=== PATIENT | female | born 1960 | race Caucasian/White ===

== ENCOUNTER 2017-10-04 06:39 | Day surgery (SDC) | payer BC ==
[2017-09-24 10:53] VITALS: BMI 22.4
[2017-10-04] MEDS ORDERED: Propofol 10 mg/ml Inj (20 ML) ONE (07:35)
[2017-10-04] MEDS ORDERED: Lactated Ringer's 1,000 ML IV SCH (08:45)
[2017-10-04 09:31] VITALS: PULSE 66; RESP 18; TEMP 98.3; O2SAT 100
[2017-10-04 10:08] VITALS: BP 97/75
== END 2017-10-04 11:01 | disposition home or self-care (01) ==
LOC: ENDO 06:39
PROVIDERS: ATTEND Internal Medicine Gastroenterology
DX: K57.30 Diverticulosis of large intestine without perforation or abscess without bleeding (principal); K63.5 Polyp of colon; K64.1 Second degree hemorrhoids; I10 Essential (primary) hypertension
CPT/HCPCS: 45380; 45385; 88305; J2001; J2704; J7040; J7120

== ENCOUNTER 2017-10-06 14:32 | Emergency (ER) | payer BC ==
[2017-10-06 14:33] VITALS: BMI 23.6
[2017-10-06 14:58] VITALS: RESP 18
[2017-10-06] MEDS ORDERED: Sodium Chloride 0.9% 500 ML IV STA (15:19)
--- NOTE | 2017-10-06 15:43 | ED PDOC ---
Arrival/HPI - General Chief Complaint: Abdominal Pain Time Seen by Provider: 10/06/17 14:43 Historian: Patient EM Caveat: Acuity of Condition, Unstable Vital Signs - History of Present Illness Narrative History of Present Illness (Text): 10/06/17 15:37 Pt is a 56 yo female s/o colonoscopy Saturday, here at [facility] with Dr. Samuels, who now reports that since the procedure, she has fever, RLQ pain and abdominal distension. Pt sates that she has diverticulitis but this is different. Denies shortness of breath, chest pain, GIB, nausea, vomiting, diarrhea. Reports a BM and gas passed this morning that was normal but RLQ pain too intense to wait for follow up appt tomorrow. Pt took ibuprofen 600mg yesterday which only helped minimally. Has not taken Lisinopril since Saturday for fear that it may make abdominal pain worse. 10/06/17 15:58 Time/Duration: 24 hours Symptom Onset: Gradual Symptom Course: Unchanged, Worsening Quality: Aching, Pressure, Tightness, Fullness Severity Level: Moderate Activities at Onset: Rest Context: Work Past Medical History - Provider Review Nursing Documentation Reviewed: Yes - Travel History Have you recently traveled outside [place] w/in the past 3 mons?: No - Infectious Disease Hx of Infectious Diseases: None - Cardiac Hx Hypertension: Yes - Neurological Hx Paralysis: No - Hematological/Oncological Hx Blood Transfusions: No - Musculoskeletal/Rheumatological Hx Musculoskeletal Disorders: Yes (SCOLIOSIS) - Gastrointestinal Hx Diverticulitis: Yes - Psychiatric Hx Emotional Abuse: No Hx Physical Abuse: No Hx Substance Use: No - Surgical History Hx Hysterectomy: Yes (partial) - Anesthesia Hx Anesthesia Reactions: No Hx Malignant Hyperthermia: No - Suicidal Assessment Feels Threatened In Home Enviroment: No Family/Social History - Physician Review Nursing Documentation Reviewed: Yes Family/Social History: Unknown Family HX Smoking Status: Never Smoked Hx Alcohol Use: Yes (OCCASIONAL) Hx Substance Use: No Allergies/Home Meds Allergies/Adverse Reactions: Allergies celecoxib [From Celebrex] Allergy (Verified 10/06/17 14:53) RASH Home Medications: Home Meds Medication Instructions Recorded Confirmed Lisinopril [Zestril] 10 mg PO HS 09/24/17 10/06/17 Review of Systems - Review of Systems Systems not reviewed;Unavailable: Unstable Vital Signs Constitutional: Fevers Eyes: Normal ENT: Normal Respiratory: Normal Cardiovascular: Normal Gastrointestinal: Abdominal Pain, Appetite Changes (diffuse and RLQ ) Genitourinary Female: Normal Musculoskeletal: Normal Skin: Normal Neurological: Normal Endocrine: Normal Hemo/Lymphatic: Normal Psychiatric: Normal Physical Exam Vital Signs Temp Pulse Resp BP Pulse Ox 10/06/17 14:57 100.0 F H 104 H 18 152/82 H 100 10/06/17 14:47 99.5 F Temperature: Febrile Blood Pressure: Normal Pulse: Regular Respiratory Rate: Tachypneic Appearance: Positive for: Well-Appearing, Non-Toxic, Comfortable Pain Distress: Moderate (5/6 when asked on the VAS) Mental Status: Positive for: Alert and Oriented X 3 - Systems Exam Head: Present: Atraumatic, Normocephalic Pupils: Present: PERRL Extroacular Muscles: Present: EOMI Conjunctiva: Present: Normal Mouth: Present: Moist Mucous Membranes Neck: Present: Normal Range of Motion Respiratory/Chest: Present: Clear to Auscultation, Good Air Exchange. No: Respiratory Distress, Accessory Muscle Use Cardiovascular: Present: Regular Rate and Rhythm, Normal S1, S2. No: Murmurs Abdomen: Present: Tenderness (RLQ), Distention, Normal Bowel Sounds, Rebound, McBurney's Point Tender. No: Peritoneal Signs, Guarding, Rovsing's Sign Present , Hernias, Feeding Tubes, Ostomy Tubes, Mass/Organomegaly, Scars, Other Rectal: No: Occult Blood, Rectal Tenderness, Gross Blood, Melena, Hemorrhoids, Normal Rectal Tone, Fissures, Nodule/Mass/Lesions, Other Back: Present: Normal Inspection. No: CVA Tenderness, Midline Tenderness, Paraspinal Tenderness, Pain with Leg Raise, Decubitus Ulcer, Other Upper Extremity: Present: Normal Inspection. No: Cyanosis, Edema Lower Extremity: Present: Normal Inspection. No: Edema Neurological: Present: GCS=15, CN II-XII Intact, Speech Normal Skin: Present: Warm, Dry, Normal Color. No: Rashes Psychiatric: Present: Alert, Oriented x 3, Normal Insight, Normal Concentration Medical Decision Making ED Course and Treatment: 10/06/17 15:43 Impression Pt is a 56 yo female s/o colonoscopy Saturday, here at [facility] with Dr. Samuels, who now reports that since the procedure, she has fever, RLQ pain and abdominal distension On PE, pt has abdominal distension, positive rebound, and febrile. Otherwise, PE benign Plan CT w contrast upright XR NPO, IVF bolus 500cc cbc w diff, cmp, ua Progress Pt developed fever of 100.1 F and was given acetaminophen CT abdomen and pelvis w and w/o contrast reveals enteritis either due to recent procedure or bacterial source Upright XR abdomen does not show fluid or air levels NPO and IV Fluids Discussed with pt and son at bedside, results of findings. Will give a STAT dose of Cipro and Flagyl and send home with Rx for 7 days Advised to F/u with PMD and GI specialist in the next day or so. 10/06/17 18:24 - Lab Interpretations Lab Results: 10/06/17 16:00 10/06/17 16:00 Lab Results 10/06/17 16:10: Urine Color Yellow, Urine Appearance Sl cloudy, Urine pH 6.0, Ur Specific [place] 1.020, Urine Protein Negative, Urine Glucose (UA) Negative, Urine Ketones Negative, Urine Blood Small H, Urine Nitrate Negative, Urine Bilirubin Negative, Urine Urobilinogen 0.2, Ur Leukocyte Esterase Negative, Urine RBC 0 - 2, Urine WBC 0 - 2, Ur Epithelial Cells 0 - 2, Calcium Oxalate Crystal Small, Urine Bacteria Small 10/06/17 16:00: Sodium 144, Potassium 4.2, Chloride 106, Carbon Dioxide 25, Anion Gap 17, BUN 8, Creatinine 0.6 L, Est GFR ( Amer) > 60, Est GFR (Non -Af Amer) > 60, Random Glucose 99, Calcium 10.0, Total Bilirubin 0.4, AST 22, ALT 15, Alkaline Phosphatase 68, Total Protein 7.7, Albumin 4.3, Globulin 3.4, Albumin/Globulin Ratio 1.3 10/06/17 16:00: WBC 12.9 H, RBC 3.97, Hgb 11.7 L, Hct 35.5 L, MCV 89.4, MCH 29.5 , MCHC 33.0, RDW 13.9, Plt Count 251, MPV 9.5, Gran % 69.2 H, Lymph % (Auto) 22.7, Power % (Auto) 7.4 H, Eos % (Auto) 0.5 L, Baso % (Auto) 0.2, Gran # 8.91 H , Lymph # (Auto) 2.9, Power # (Auto) 1.0 H, Eos # (Auto) 0.1, Baso # (Auto) 0.02 - RAD Interpretation Narrative RAD Interpretations (Text): 10/06/17 18:01 PROCEDURE: CT Abdomen and Pelvis with contrast HISTORY: R/O perforation s/p colonoscopy COMPARISON: 09/02/2014. CT abdomen and pelvis TECHNIQUE: Contrast dose: 100 cc Omnipaque 350. Radiation dose: Total exam DLP = 198.90 mGy-cm. This CT exam was performed using one or more of the following dose reduction techniques: Automated exposure control, adjustment of the mA and/or kV according to patient size, and/or use of iterative reconstruction technique. FINDINGS: LOWER THORAX: Unremarkable. LIVER: Hepatic steatosis. 1.6 x 1.0 cm peripheral cyst right hepatic lobe. . No intrahepatic bile duct dilatation or perihepatic ascites. GALLBLADDER AND BILE DUCTS: Unremarkable. PANCREAS: Unremarkable. No gross lesion or ductal dilatation. SPLEEN: Unremarkable. ADRENALS: Unremarkable. No mass. KIDNEYS AND URETERS: Unremarkable. No hydronephrosis. No solid mass. VASCULATURE: Unremarkable. No aortic aneurysm. BOWEL: Segmental inflammatory change medial wall of the ascending colon. The precise etiology is uncertain. No loculated air, free air or drainable collection. Diverticulosis identified. There is either air within diverticula or pneumatosis. No persistent status post recent colectomy pneumatosis is less likely thinning air within a diverticulum. Fluid-filled small bowel with contrast-enhancing characteristics within the small bowel wall likely reflective of enteritis. APPENDIX: Normal appendixA normal appendix is identified. This is separate from the inflammatory changes in the ascending colon. . PERITONEUM: Unremarkable. No free fluid. No free air. LYMPH NODES: Unremarkable. No enlarged lymph nodes. BLADDER: Unremarkable. REPRODUCTIVE: Unremarkable. BONES: No acute fracture. OTHER FINDINGS: None. IMPRESSION: 1. Segmental inflammatory changes ascending colon. No loculated air or free air. If biopsy has been performed (history provided indicates recent colonoscopy ) inflammatory change could be secondary to that procedure. 2. Diverticulosis primarily within the left hemicolon. 3. Findings within small bowel consistent with enteritis, mild without evidence of obstruction. 4. Benign-appearing mass/lesion right hepatic lobe. Radiology Orders: 10/06/17 15:14 ABDOMEN (FLAT PLATE) 1VIEW [RAD] Stat 10/06/17 15:16 ABD & PELVIS IV CONTRAST ONLY [CT] Stat - Medication Orders Current Medication Orders: Discontinued Medications Acetaminophen (Tylenol 325mg Tab) 650 mg PO STAT STA Stop: 10/06/17 15:21 Last Admin: 10/06/17 16:09 Dose: 650 mg MAR Pain/Vitals Document 10/06/17 16:09 GMD (Rec: 10/06/17 16:09 GMD [id number]) Presence of Pain Presence of Pain Yes Sodium Chloride (Sodium Chloride 0.9%) 500 mls @ 999 mls/hr IV .Q31M STA Stop: 10/06/17 15:49 Last Admin: 10/06/17 16:10 Dose: 999 mls/hr eMAR Start Stop Document 10/06/17 16:10 GMD (Rec: 10/06/17 16:10 GMD [id number]) Intravenous Solution Start Date 10/06/17 Start Time 16:10 End Date 10/06/17 End time 16:40 Total Infusion Time 30 Disposition/Present on Arrival - Present on Arrival Any Indicators Present on Arrival: No History of DVT/PE: No History of Uncontrolled Diabetes: No Urinary Catheter: No History of Decub. Ulcer: No History Surgical Site Infection Following: None - Disposition Have Diagnosis and Disposition been Completed?: Yes Diagnosis: Colitis Disposition: HOME/ ROUTINE Disposition Time: 18:30 Patient Plan: Discharge Condition: STABLE Discharge Instructions (ExitCare): Colitis (ED), Ibuprofen (By mouth) Additional Instructions: Dear Sydney, You have been assessed and carefully evaluated. We are sending you home with a course of Falgyl and Ciprofloxacin that will help to treat intestinal bacteria that may be the source of your pain. Please ensure that you take the medication as directed, drink plenty of fluids, and eat small meals that are easy to digest. Take ibuprofen to reduce pain and inflammation but make sure you have a meal first before taking it. If you experience severe fever, pain, chest or abdominal pain or shortness of breath of any other alarming symptoms, return to the emergency room immediately. Please follow up with your Primary Doctor and surgeon as soon as possible. All the best in your recovery. Referrals: Naeem Blackwell MD [Primary Care Provider] - Follow up with primary Forms: ensembli (Georgian)
[2017-10-06 16:24] LABS: BASO # 0.02 K/mm3 (0.0-2.0); BASO % 0.2 % (0.0-3.0); EOS # 0.1 (0.0-0.7); EOS % 0.5 % (1.5-5.0); GRAN # 8.91 (1.4-6.5); GRAN % 69.2 % (50.0-68.0); HEMOGLOBIN 11.7 g/dL (12.0-16.0); LYMPH # 2.9 (1.2-3.4); LYMPH % 22.7 % (22.0-35.0); MEAN CELL VOLUME 89.4 fl (80.0-105.0); MEAN CORPUSCULAR HEMOGLOBIN 29.5 pg (25.0-35.0); MEAN PLATELET VOLUME 9.5 fl (7.0-11.0); MONO % 7.4 % (1.0-6.0); RBC 3.97 10^6/uL (3.5-6.1); RED CELL DISTRIBUTION WIDTH 13.9 % (11.5-14.5); WHITE BLOOD COUNT 12.9 10^3/ul (4.5-11.0)
[2017-10-06 16:28] LABS: ALB/GLOB RATIO 1.3 (1.1-1.8); ALBUMIN 4.3 g/dL (3.0-4.8); ALT/SGPT 15 U/L (7-56); AST/SGOT 22 U/L (14-36); BLOOD UREA NITROGEN 8 mg/dL (7-21); GFR AFRICAN-AMERICAN > 60; GFR NON-AFRICAN AMERICAN > 60
[2017-10-06] MEDS ORDERED: Iohexol 350 MG/100 ML VIAL ONE (16:33)
[2017-10-06 16:48] LABS: URINE BILIRUBIN NEGATIVE (NEGATIVE); URINE BLOOD SMALL (NEGATIVE); URINE GLUCOSE (UA) NEGATIVE (NEGATIVE); URINE LEUKOCYTE ESTERASE NEGATIVE Leu/uL (NEGATIVE); URINE NITRATE NEGATIVE (NEGATIVE); URINE PROTEIN NEGATIVE mg/dL (<30 mg/dL); URINE UROBILINOGEN 0.2 E.U./dL (<1 E.U./dL)
[2017-10-06 16:51] LABS: URINE APPEARANCE SL CLOUDY (CLEAR); URINE COLOR YELLOW (YELLOW)
[2017-10-06 17:17] LABS: URINE BACTERIA SMALL (NEG); URINE CALCIUM OXALATE CRYSTALS SMALL /hpf; URINE EPITHELIAL CELLS 0 - 2 /hpf (0-5); URINE RBC 0 - 2 /hpf (0-2); URINE WBC 0 - 2 /hpf (0-6)
--- NOTE | 2017-10-06 17:47 | RAD ---
HISTORY: abdominal pain COMPARISON: No prior. FINDINGS: BOWEL: Normal. No obstruction. No free air. BONES: Scoliosis, secondary degenerative change at multiple levels. OTHER FINDINGS: None. IMPRESSION: No significant or acute findings to account for/ related to the clinical presentation.
--- NOTE | 2017-10-06 17:56 | CT ---
PROCEDURE: CT Abdomen and Pelvis with contrast HISTORY: R/O perforation s/p colonoscopy COMPARISON: 09/02/2014. CT abdomen and pelvis TECHNIQUE: Contrast dose: 100 cc Omnipaque 350. Radiation dose: Total exam DLP = 198.90 mGy-cm. This CT exam was performed using one or more of the following dose reduction techniques: Automated exposure control, adjustment of the mA and/or kV according to patient size, and/or use of iterative reconstruction technique. FINDINGS: LOWER THORAX: Unremarkable. LIVER: Hepatic steatosis. 1.6 x 1.0 cm peripheral cyst right hepatic lobe. . No intrahepatic bile duct dilatation or perihepatic ascites. GALLBLADDER AND BILE DUCTS: Unremarkable. PANCREAS: Unremarkable. No gross lesion or ductal dilatation. SPLEEN: Unremarkable. ADRENALS: Unremarkable. No mass. KIDNEYS AND URETERS: Unremarkable. No hydronephrosis. No solid mass. VASCULATURE: Unremarkable. No aortic aneurysm. BOWEL: Segmental inflammatory change medial wall of the ascending colon. The precise etiology is uncertain. No loculated air, free air or drainable collection. Diverticulosis identified. There is either air within diverticula or pneumatosis. No persistent status post recent colectomy pneumatosis is less likely thinning air within a diverticulum. Fluid-filled small bowel with contrast-enhancing characteristics within the small bowel wall likely reflective of enteritis. APPENDIX: Normal appendixA normal appendix is identified. This is separate from the inflammatory changes in the ascending colon. . PERITONEUM: Unremarkable. No free fluid. No free air. LYMPH NODES: Unremarkable. No enlarged lymph nodes. BLADDER: Unremarkable. REPRODUCTIVE: Unremarkable. BONES: No acute fracture. OTHER FINDINGS: None. IMPRESSION: 1. Segmental inflammatory changes ascending colon. No loculated air or free air. If biopsy has been performed (history provided indicates recent colonoscopy) inflammatory change could be secondary to that procedure. 2. Diverticulosis primarily within the left hemicolon. 3. Findings within small bowel consistent with enteritis, mild without evidence of obstruction. 4. Benign-appearing mass/lesion right hepatic lobe.
[2017-10-06 18:43] VITALS: BP 129/85; PULSE 88; TEMP 99; O2SAT 98
== END 2017-10-06 18:49 | disposition home or self-care (01) ==
LOC: ED 14:32
DX: K52.9 Noninfective gastroenteritis and colitis, unspecified (principal); I10 Essential (primary) hypertension
CPT/HCPCS: 74018; 74177; 80053; 81001; 85025; 96374; 99285; J1885; J7040; Q9967